=== PATIENT | female | born 2000 | race Caucasian/White ===

== ENCOUNTER → 2018-11-03 | Day surgery (SDC) | payer BC ==
[~2018-11-03] MED LIST: Lactated Ringers 1,000 ML IV SCH; Propofol 200 MG/20 ML SDV IV ONE
[2018-11-03] MEDS: Lactated Ringers 1,000 ML IV SCH (11:41)
[2018-11-03 13:34] VITALS: BP 124/55
--- NOTE | 2018-11-07 09:26 | OR ---
DATE OF OPERATION: 11/03/2018 PREOPERATIVE DIAGNOSIS: 1. ONGOING HEMATOCHEZIA WITH ALTERED BOWEL HABITS. 2. WEIGHT LOSS. POSTOPERATIVE DIAGNOSIS: 1. ONGOING HEMATOCHEZIA WITH ALTERED BOWEL HABITS. 2. WEIGHT LOSS. SURGEON: Johnny Solares MD PROCEDURE: FULL-LENGTH COLONOSCOPY TO TERMINAL ILEUM WITH RANDOM BIOPSIES X7. ANESTHESIA: MAC via OPERATION SUPERVISOR. COMPLICATIONS: None. SPECIMEN: Random biopsies x7 from terminal ileum to rectum. FINDINGS: Essentially normal full-length colonoscopy to terminal ileum. RECOMMENDATIONS: Medical followup with Rima Martinez. INDICATIONS: Ms. Yu is a 18-year-old female with a history of ongoing hematochezia and abdominal pain. She was sent for diagnostic colonoscopy to assess for colitis. DESCRIPTION OF PROCEDURE: The patient was prepped and draped, placed in the left lateral decubitus position. A lubricated Olympus colonoscope was inserted and easily advanced to the cecum. We were able to intubate into the terminal ileum which was completely normal. Biopsy of that was taken. The bowel prep was excellent. Upon withdrawal, we did do random biopsies from the terminal ileum to the rectum including the ascending colon, transverse, descending, sigmoid, and rectum totalling a #7. Throughout the entire colon, I could find no signs of any polyps, mass, ulceration, or bleeding sites. There were no vascular abnormalities or signs of colitis. No diverticula. Retroflexion of scope in the rectum showed some perianal hemorrhoid tissue, but minimal. Air was suctioned, scope removed without complication. ALIYA/SUKHJINDER /[id number]
== END ==
LOC: CC.SDS 10:51
PROVIDERS: ATTEND Family Medicine
DX: K63.89 Other specified diseases of intestine (principal); K64.8 Other hemorrhoids; K92.1 Melena; R19.4 Change in bowel habit; R63.4 Abnormal weight loss; G47.30 Sleep apnea, unspecified; G43.909 Migraine, unspecified, not intractable, without status migrainosus; F32.9 Major depressive disorder, single episode, unspecified; F41.9 Anxiety disorder, unspecified; R56.00 Simple febrile convulsions; K21.9 Gastro-esophageal reflux disease without esophagitis; Z85.6 Personal history of leukemia
CPT/HCPCS: 36415; 45380; 84703; J2704; J7120

== ENCOUNTER 2020-03-30 22:20 | Emergency (ER) | payer BC, OTHER ==
[2020-03-30] MEDS ORDERED: Ondansetron 4 MG Tab.DIS PO ONE ×2 (22:21→23:12)
[2020-03-30 22:42] VITALS: BP 130/87; PULSE 87
[2020-03-30 23:00] LABS: CHLORIDE,CL 103 mEq/L (98-106); SODIUM,NA 142 mEq/L (136-145)
[2020-03-30] MEDS ORDERED: Take Home: Ondansetron 4 MG Tab.DIS, 2 Tab Pack PO ONE (23:11)
--- NOTE | 2020-03-30 23:13 | EDM.PDOC ---
ED HPI GENERAL MEDICAL PROBLEM - General Chief Complaint: Neuro Symptoms/Deficits Stated Complaint: dizzy/nausea/legs weak Time Seen by Provider: 03/30/20 22:57 Source of Information: Reports: Patient History Limitations: Reports: No Limitations - History of Present Illness INITIAL COMMENTS - FREE TEXT/NARRATIVE: This patient is a 19 year old female that presents to the ER. Patient reports that since June she has been having lightheadedness, nausea, migraines, and syncopal episodes. She reports seeing her PCP and neurologist in [place] and other specialist for the same complaint. She reports that this happens often. She reports this evening she felt nauseated and lightheaded while crossing the street, No syncope tonight. She reports that her mother encouraged her then made her come get checked out to at least check blood work to ensure nothing else was going on. Onset: Other (comes and goes ) Duration: Other ("Since June" But episode this evening. She gets daily. ) Severity: Mild Improves with: Reports: None Worsens with: Reports: None Associated Symptoms: Reports: Headaches, Nausea/Vomiting. Denies: Confusion, Chest Pain, Cough, cough w sputum, Diaphoresis, Fever/Chills, Loss of Appetite, Malaise, Rash, Seizure, Shortness of Breath, Syncope, Weakness - Related Data Allergies Allergy/AdvReac Type Severity Reaction Status Date / Time No Known Allergies Allergy Verified 11/03/18 06:26 Home Meds: Home Meds ClonazePAM [KlonoPIN] 0.5 mg PO BID PRN 10/25/18 [History] Pantoprazole Sodium 40 mg PO DAILY 10/25/18 [History] Propranolol [Inderal] 40 mg PO DAILY 10/25/18 [History] Rizatriptan Benzoate [Rizatriptan] 5 mg PO DAILY PRN 10/25/18 [History] SUMAtriptan succinate [Sumatriptan Succinate] 25 mg PO DAILY PRN 10/25/18 [His tory] norgestimate-ethinyl estradioL [Sprintec 28 Day Tablet] 1 tab PO DAILY 10/25/18 [History] Ondansetron [Zofran ODT] 4 mg PO Q6H PRN #24 tab.dis 03/30/20 [Rx] Past Medical History 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 Neurological History: Reports: Migraines Oncologic (Cancer) History: Reports: Leukemia - Past Surgical History HEENT Surgical History: Reports: Tonsillectomy Female Surgical History: Reports: Cystectomy Oncologic Surgical History: Reports: Bone Marrow Aspiration Social & Family History - Tobacco Use Tobacco Use Status *Q: Never Tobacco User Second Hand Smoke Exposure: Yes - Caffeine Use Caffeine Use: Reports: Coffee - Recreational Drug Use Recreational Drug Use: No ED ROS GENERAL - Review of Systems Review Of Systems: See Below Constitutional: Reports: No Symptoms HEENT: Reports: No Symptoms Respiratory: Reports: No Symptoms Cardiovascular: Reports: Lightheadedness. Denies: Chest Pain, Dyspnea on Exertion, Edema, Palpitations, Syncope Endocrine: Reports: No Symptoms GI/Abdominal: Reports: Nausea. Denies: Abdominal Pain, Diarrhea, Vomiting : Reports: No Symptoms Musculoskeletal: Reports: No Symptoms Skin: Reports: No Symptoms Neurological: Reports: Headache (migrain typical for her, behind both eyes. ). Denies: Confusion, Seizure, Syncope, Tremors, Trouble Speaking, Difficulty Walking, Change in Speech, Gait Disturbance Psychiatric: Reports: No Symptoms Hematologic/Lymphatic: Reports: No Symptoms Immunologic: Reports: No Symptoms ED EXAM, NEURO - Physical Exam Exam: See Below Exam Limited By: No Limitations General Appearance: Alert, WD/WN, No Apparent Distress Eye Exam: Bilateral Eye: EOMI, Normal Inspection, PERRL Ears: Normal External Exam, Normal Canal, Hearing Grossly Normal, Normal TMs Nose: Normal Inspection, Normal Mucosa, No Blood Throat/Mouth: Normal Inspection, Normal Lips, Normal Teeth, Normal Gums, Normal Oropharynx, Normal Voice, No Airway Compromise Head Exam: Atraumatic, Normocephalic Neck: Normal Inspection, Supple, Non-Tender, Full Range of Motion Respiratory/Chest: No Respiratory Distress, Lungs Clear, Normal Breath Sounds, No Accessory Muscle Use Cardiovascular: Normal Peripheral Pulses, Regular Rate, Rhythm, No Edema, No Gallop, No JVD, No Murmur, No Rub GI/Abdominal: Soft, Non-Tender Neurological: Alert, Normal Mood/Affect, Normal Dorsiflexion, CN II-XII Intact, Normal Plantar Flexion, Normal Gait, No Motor/Sensory Deficits, Oriented x 3. No: Abnormal Gait, Ataxia, Tremor Back Exam: Normal Inspection, Full Range of Motion. No: CVA Tenderness (L), CVA Tenderness (R) Extremities: Normal Inspection, Normal Range of Motion, Non-Tender, No Pedal Edema, Normal Capillary Refill Psychiatric: Normal Affect, Normal Mood Skin Exam: Warm, Dry, Intact, Normal Color, No Rash #1 Interpretation EKG Date: 03/30/20 Time: 22:55 Rhythm: NSR Rate (Beats/Min): 69 Mcdonald: Normal P-Wave: Present QRS: Normal ST-T: Normal QT: Normal Comparison: NA - No Prior EKG Course - Vital Signs Last Recorded V/S: Last Vital Signs Temp 98.1 F 03/30/20 22:38 Pulse 87 03/30/20 22:38 Resp 20 03/30/20 22:38 BP 130/87 03/30/20 22:38 Pulse Ox 99 03/30/20 22:38 - Orders/Labs/Meds Orders: Active Orders 24 hr Category Date Time Status EKG Documentation Completion [RC] STAT Care 03/30/20 22:36 Active Labs: Laboratory Tests 03/30/20 03/30/20 03/30/20 Range/Units 22:10 22:36 22:36 WBC 9.4 (5.0-10.0) 10^3/uL RBC 4.85 (4.00-5.50) 10^6/uL Hgb 14.1 (12.0-16.0) g/dL Hct 39.8 (37.0-47.0) % MCV 82.1 (82.0-94.0) fL MCH 29.1 (27.0-32.0) pg MCHC 35.4 (33.0-38.0) g/dL RDW Coeff of Joyce 13.5 (11.0-15.0) % Plt Count 354 (150-400) 10^3/uL Neut % (Auto) 47.1 (35-85) % Lymph % (Auto) 41.4 (10-55) % [place] % (Auto) 6.0 (0-16) % Eos % (Auto) 4.9 (0-5) % Baso % (Auto) 0.6 (0-3) % Neut # (Auto) 4.42 (1.80-7.00) 10^3/uL Lymph # (Auto) 3.89 (1.00-4.80) 10^3/uL [place] # (Auto) 0.56 (0.00-0.80) 10^3/uL Eos # (Auto) 0.46 H (0.00-0.45) 10^3/uL Baso # (Auto) 0.06 10^3/uL Sodium 142 (136-145) mEq/L Potassium 4.0 (3.5-5.0) mEq/L Chloride 103 (98-106) mEq/L Carbon Dioxide 27 (21-32) mmol/L BUN 12 (7-18) mg/dL Creatinine 1.0 (0.6-1.0) mg/dL Est Cr Clr Drug Dosing 83.31 mL/min Estimated GFR (MDRD) > 60 (>=60) mL/min Glucose 110 H (75-99) mg/dL Lactic Acid (0.4-2.0) mmol/L Calcium 9.2 (8.4-10.1) mg/dL Total Bilirubin 1.0 (0.0-1.0) mg/dL AST 25 (15-37) U/L ALT 44 (12-78) U/L Alkaline Phosphatase 74 (46-116) U/L Creatine Kinase 198 (21-215) U/L Troponin I < 0.017 (0.00-0.06) ng/mL Total Protein 7.7 (6.4-8.2) g/dL Albumin 4.0 (3.4-5.0) g/dL Amylase 40 (25-115) U/L Lipase 99 (73-393) U/L Urine Color (YELLOW) Urine Appearance (CLEAR) Urine pH (4.5-8.0) Ur Specific [place] (1.003-1.020) Urine Protein (NEGATIVE) mg/dL Urine Glucose (UA) (NEGATIVE) mg/dL Urine Ketones (NEGATIVE) mg/dL Urine Occult Blood (NEGATIVE) Urine Nitrite (NEGATIVE) Urine Bilirubin (NEGATIVE) Urine Urobilinogen (0.2-1.0) EU/dL Ur Leukocyte Esterase (NEGATIVE) Urine HCG, Qual SARS CoV-2 RNA Rapid BECKY Negative (NEGATIVE) 03/30/20 03/30/20 03/30/20 Range/Units 22:36 22:58 23:04 WBC (5.0-10.0) 10^3/uL RBC (4.00-5.50) 10^6/uL Hgb (12.0-16.0) g/dL Hct (37.0-47.0) % MCV (82.0-94.0) fL MCH (27.0-32.0) pg MCHC (33.0-38.0) g/dL RDW Coeff of Joyce (11.0-15.0) % Plt Count (150-400) 10^3/uL Neut % (Auto) (35-85) % Lymph % (Auto) (10-55) % [place] % (Auto) (0-16) % Eos % (Auto) (0-5) % Baso % (Auto) (0-3) % Neut # (Auto) (1.80-7.00) 10^3/uL Lymph # (Auto) (1.00-4.80) 10^3/uL [place] # (Auto) (0.00-0.80) 10^3/uL Eos # (Auto) (0.00-0.45) 10^3/uL Baso # (Auto) 10^3/uL Sodium (136-145) mEq/L Potassium (3.5-5.0) mEq/L Chloride (98-106) mEq/L Carbon Dioxide (21-32) mmol/L BUN (7-18) mg/dL Creatinine (0.6-1.0) mg/dL Est Cr Clr Drug Dosing mL/min Estimated GFR (MDRD) (>=60) mL/min Glucose (75-99) mg/dL Lactic Acid 1.5 (0.4-2.0) mmol/L Calcium (8.4-10.1) mg/dL Total Bilirubin (0.0-1.0) mg/dL AST (15-37) U/L ALT (12-78) U/L Alkaline Phosphatase (46-116) U/L Creatine Kinase (21-215) U/L Troponin I (0.00-0.06) ng/mL Total Protein (6.4-8.2) g/dL Albumin (3.4-5.0) g/dL Amylase (25-115) U/L Lipase (73-393) U/L Urine Color Yellow (YELLOW) Urine Appearance Clear (CLEAR) Urine pH 6.0 (4.5-8.0) Ur Specific [place] >= 1.030 H (1.003-1.020) Urine Protein Negative (NEGATIVE) mg/dL Urine Glucose (UA) Negative (NEGATIVE) mg/dL Urine Ketones Negative (NEGATIVE) mg/dL Urine Occult Blood Negative (NEGATIVE) Urine Nitrite Negative (NEGATIVE) Urine Bilirubin Negative (NEGATIVE) Urine Urobilinogen 0.2 (0.2-1.0) EU/dL Ur Leukocyte Esterase Negative (NEGATIVE) Urine HCG, Qual Negative SARS CoV-2 RNA Rapid BECKY (NEGATIVE) Meds: Medications Discontinued Medications Generic Name Dose Route Start Last Admin Trade Name Freq PRN Reason Stop Dose Admin Ondansetron HCl 4 mg 03/30/20 23:11 03/30/20 23:19 Zofran Odt PO 03/30/20 23:12 4 mg ONETIME ONE Administration Ondansetron HCl 1 packet 03/30/20 23:11 Take Home: Ondansetron Odt 4 Mg, 2 Tab Pack PO 03/30/20 23:12 ONETIME ONE Ondansetron HCl 4 mg 03/30/20 23:12 Zofran Odt PO 03/30/20 23:13 ONETIME ONE Departure - Departure Time of Disposition: 23:13 Disposition: Home, Self-Care 01 Condition: Good Clinical Impression: Lightheaded, Nausea, Near syncope - Discharge Information *PRESCRIPTION DRUG MONITORING PROGRAM REVIEWED*: Not Applicable *COPY OF PRESCRIPTION DRUG MONITORING REPORT IN PATIENT SERG: Not Applicable Prescriptions: Ondansetron [Zofran ODT] 4 mg PO Q6H PRN #24 tab.dis PRN Reason: Nausea/Vomiting Instructions: Near-Syncope, [id number], Nausea, Adult, [id number] Forms: ED Department Discharge Additional Instructions: Followup with primary care provider for recheck Return to the ER for worsening of condition or any emergent concerns Go home and rest Drink plenty of fluids Followup with your specialist as needed Zofran 4mg under the tongue every 6 hours as needed for nausea/vomiting #2 take home: #24 sent to pharmacy Sepsis Event Note (ED) - Evaluation Sepsis Screening Result: No Definite Risk - Focused Exam Vital Signs: Vital Signs Temp Pulse Resp BP Pulse Ox 03/30/20 22:38 98.1 F 87 20 130/87 99 - My Orders Last 24 Hours: My Active Orders 03/30/20 22:36 EKG Documentation Completion [RC] STAT - Assessment/Plan Last 24 Hours: My Active Orders 03/30/20 22:36 EKG Documentation Completion [RC] STAT Plan: PLEASE SEE RN NOTE FOR PFSH
[2020-03-30] MEDS: Ondansetron 4 MG Tab.DIS PO ONE (23:19)
== END 2020-03-30 23:30 | disposition home or self-care (01) ==
LOC: CC.ED 22:20
DX: R55 Syncope and collapse (principal); R42 Dizziness and giddiness; R11.0 Nausea; Z20.828 Contact with and (suspected) exposure to other viral communicable diseases; Z79.899 Other long term (current) drug therapy
CPT/HCPCS: 36415; 80053; 81003; 81025; 82150; 82550; 83605; 83690; 84484; 85025; 87635; 93005; 99284; A9270; U0002

== ENCOUNTER 2021-06-04 13:30 | Emergency (ER) | payer BC ==
[2021-06-04 13:50] VITALS: BP 115/70; PULSE 79
--- NOTE | 2021-06-04 14:09 | EDM.PDOC ---
ED HPI GENERAL MEDICAL PROBLEM - General Chief Complaint: General Stated Complaint: PAIN IN PELVIC AREA Time Seen by Provider: 06/04/21 13:45 Source of Information: Reports: Patient - History of Present Illness INITIAL COMMENTS - FREE TEXT/NARRATIVE: This is a 20 year old female that presents to the ED with complaints of pelvic pain and known UTI. Patient was seen at [facility] in [place] on Tuesday and started on antibiotics. She was notified today that her antibiotic needed to be changed due to the culture results. Patient states she has taken one pill of the new prescription. States the pelvic radiates around to the flanks bilaterally. States she feels achy. States that she feels like she cannot empty her bladder and has sever pain with voiding. Reports history of endometriosis, however states this pain is different. Onset: Gradual Duration: Day(s): Quality: Reports: Burning Severity: Moderate Worsens with: Reports: None Associated Symptoms: Reports: Nausea/Vomiting, Other (body aches) Pelvic Pain Score (Numeric/FACES): 10 - Related Data Allergies Allergy/AdvReac Type Severity Reaction Status Date / Time No Known Allergies Allergy Verified 11/03/18 06:26 Home Meds: Home Meds ClonazePAM [KlonoPIN] 0.5 mg PO BID PRN 10/25/18 [History] Pantoprazole Sodium 40 mg PO DAILY 10/25/18 [History] Propranolol [Inderal] 40 mg PO DAILY 10/25/18 [History] Rizatriptan Benzoate [Rizatriptan] 5 mg PO DAILY PRN 10/25/18 [History] SUMAtriptan succinate [Sumatriptan Succinate] 25 mg PO DAILY PRN 10/25/18 [History] norgestimate-ethinyl estradioL [Sprintec 28 Day Tablet] 1 tab PO DAILY 10/25/18 [History] Ondansetron [Zofran ODT] 4 mg PO Q6H PRN #24 tab.dis 03/30/20 [Rx] Phenazopyridine [Pyridium] 100 mg PO TID #6 tab 06/04/21 [Rx] 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 Denies: Fever, Chills HEENT: Reports: No Symptoms Respiratory: Denies: Shortness of Breath, Wheezing, Cough Cardiovascular: Denies: Chest Pain, Dyspnea on Exertion Endocrine: Reports: No Symptoms GI/Abdominal: Reports: Nausea, Other (pelvic pain) : Reports: Dysuria, Flank Pain (bilateral), Frequency, Urgency Musculoskeletal: Reports: No Symptoms Skin: Reports: No Symptoms Neurological: Reports: No Symptoms Psychiatric: Reports: No Symptoms Hematologic/Lymphatic: Reports: No Symptoms Immunologic: Reports: No Symptoms ED EXAM, GENERAL - Physical Exam Exam: See Below Exam Limited By: No Limitations General Appearance: Alert, WD/WN, Mild Distress Ears: Normal External Exam, Hearing Grossly Normal Nose: Normal Inspection, No Blood Throat/Mouth: Normal Voice, No Airway Compromise Head: Atraumatic, Normocephalic Respiratory/Chest: No Respiratory Distress, Lungs Clear, Normal Breath Sounds Cardiovascular: Normal Peripheral Pulses, Regular Rate, Rhythm, No Gallop, No Murmur, No Rub GI/Abdominal: Normal Bowel Sounds, Soft (Female) Exam: Deferred Rectal (Female) Exam: Deferred Back Exam: CVA Tenderness (L), CVA Tenderness (R) Extremities: Normal Inspection Neurological: Alert, Oriented, Normal Cognition Psychiatric: Normal Affect, Normal Mood Skin Exam: Warm, Dry, Intact Course - Vital Signs Last Recorded V/S: Last Vital Signs Temp 97.1 F 06/04/21 13:41 Pulse 79 06/04/21 13:41 Resp 20 06/04/21 13:41 BP 115/70 06/04/21 13:41 Pulse Ox 99 06/04/21 13:41 - Orders/Labs/Meds Orders: Active Orders 24 hr Category Date Time Status CBC WITH AUTO DIFF [HEME] Stat Lab 06/04/21 13:53 Ordered COMPREHENSIVE METABOLIC PN,CMP [CHEM] Stat Lab 06/04/21 13:53 Ordered CRP [C-REACTIVE PROTEIN] [CHEM] Stat Lab 06/04/21 13:53 Ordered UA W/MICROSCOPIC [URIN] Stat Lab 06/04/21 13:53 Ordered Urine HCG [HCG QUALITATIVE,URINE] [URCHEM] Stat Lab 06/04/21 14:01 Ordered - Re-Assessments/Exams Free Text/Narrative Re-Assessment/Exam: This is a 20 year old female that presents to the ED with pelvic pain, dysuria, and urgency. States she has a known UTI and a provider at [facility] in [place] changed her antibiotic today. [facility] clinic was called and patient was switched to Macrobid from Bactrim due to culture and sensitivity results. The patient had taken one dose of the Macrobid, however she stated symptoms were unbearable. Repeat UA completed positive for nitrites and leukocyte esterase and will submit for culture. CBC, CMP, and CRP also obtained and unremarkable. Toradol 30 mg IVP for pain and Rocephin 1 gram IVP administered for UTI in the ED. Patient will be given script for Pyridium 100 mg po TID for the next 2 days. Advised to continue the Macrobid as prescribed by the [facility] provider. Encouraged patient to push fluids. May use tylenol or ibuprofen for discomfort as needed. She states that she still has Zofran from prior prescription and may use this for nausea if needed. Follow-up or return if symptoms worsen or not improving. Departure - Departure Time of Disposition: 14:34 Disposition: Home, Self-Care 01 Condition: Fair Clinical Impression: UTI, Urinary tract infectious disease - Discharge Information *PRESCRIPTION DRUG MONITORING PROGRAM REVIEWED*: Not Applicable *COPY OF PRESCRIPTION DRUG MONITORING REPORT IN PATIENT SERG: Not Applicable Instructions: Urinary Tract Infection, Adult Additional Instructions: 1. Take previously prescribed nitrofurantoin (Macrobid) 2. Prescription for Pyridium sent to pharmacy. Take as prescribed. This medication will turn your urine orange. 3. May use previously prescribed ondansetron (Zofran) for nausea as needed. 4. Drink plenty of fluids. 5. Follow-up with PCP as needed and if symptoms persist. 6. Follow-up or return to the ED if symptoms worsen. Sepsis Event Note (ED) - Evaluation Sepsis Screening Result: No Definite Risk - Focused Exam Vital Signs: Vital Signs Temp Pulse Resp BP Pulse Ox 06/04/21 13:41 97.1 F 79 20 115/70 99 - My Orders Last 24 Hours: My Active Orders 06/04/21 13:53 CBC WITH AUTO DIFF [HEME] Stat COMPREHENSIVE METABOLIC PN,CMP [CHEM] Stat CRP [C-REACTIVE PROTEIN] [CHEM] Stat UA W/MICROSCOPIC [URIN] Stat 06/04/21 14:01 Urine HCG [HCG QUALITATIVE,URINE] [URCHEM] Stat - Assessment/Plan Last 24 Hours: My Active Orders 06/04/21 13:53 CBC WITH AUTO DIFF [HEME] Stat COMPREHENSIVE METABOLIC PN,CMP [CHEM] Stat CRP [C-REACTIVE PROTEIN] [CHEM] Stat UA W/MICROSCOPIC [URIN] Stat 06/04/21 14:01 Urine HCG [HCG QUALITATIVE,URINE] [URCHEM] Stat
[2021-06-04] MEDS ORDERED: Ketorolac 30 MG/ML SDV IVPUSH ONE (14:12)
[2021-06-04] MEDS ORDERED: cefTRIAXone 1 GM Vial IVPUSH ONE (14:17)
[2021-06-04 14:18] LABS: CHLORIDE,CL 104 mEq/L (98-106); SODIUM,NA 138 mEq/L (136-145)
== END 2021-06-04 14:45 | disposition home or self-care (01) ==
LOC: CC.ED 13:30
DX: N39.0 Urinary tract infection, site not specified (principal); Z79.899 Other long term (current) drug therapy
CPT/HCPCS: 36415; 80053; 81001; 81025; 85025; 86140; 87086; 87088; 87186; 96374; 96375; 99284-25; J0696; J1885